=== PATIENT | female | born 1965 | race Caucasian/White ===

== ENCOUNTER 2023-11-11 19:13 | Emergency (ER) | payer BC, SELFPAY ==
--- NOTE | 2023-11-11 19:51 | ED.MUSCINJ ---
HPI-Injury
General
Chief Complaint: Musculo-Skeletal Complaint
Source: patient
Exam Limitations: none
Time Seen by Provider: 11/11/23 19:26
Travel History
Have you had any contact with someone who has COVID-19?: No
Do you have any symptoms of coronavirus? Fever > 100 degrees, chills, cough, shortness of breath, sore throat, loss of taste or smell, muscle aches, or headache?: No
History of Present Illness-Injury
Is this injury a work related problem?: No
Is pt an associate of [facility]?: No
Initial Injury comments:
This is a 58 year old female that comes in with c/o left knee pain. States that today she fell and landed on her knee. States that the floor was wet and she slipped. States that she did not hit her head or have any LOC. States that she was able to
walk on the leg but now she can't put any weight on the leg. Denies any fever, chills, nausea, vomiting, diarrhea, headache, dizziness.
Past History
Past History
ED Past Medical History: Hypercholesterolemia, Other (Chronic sinus issues, Migraines, ) and Other (Migraines)
ED Past Surgical History: Gynecological ( Total abd Hysterectomy ) and Orthopedic (Arthroscopic knee surgery, bunionectomy)
Social History
Tobacco: Non-smoker
Alcohol: Occasional
Personal:
Living: with family
Employment: Employed
Review of Systems
Review of Systems
All Other Systems: ROS reviewed and negative except as documented in HPI and ROS
Constitutional: Reports no symptoms; Denies fever or chills
EENT: Reports no symptoms
Respiratory: Reports no symptoms
Cardiac: Reports no symptoms
ABD/GI: Reports no symptoms
: Reports no symptoms
Musculoskeletal: Reports joint pain
Skin: Reports no symptoms
Neurological: Reports no symptoms; Denies dizzy or headache
Psychiatric: Reports no symptoms
Musculoskeletal Injury Exam
Musculoskeletal Injury Exam
Left Lateral Dorsal Knee:
Pain with Movement?: Mild
Tender to palpation?: Mild
Soft tissue swelling?: Mild
External deformity and angulation?: None
Joint effusion?: None
Contusion?: Mild
Strain- Sprain- Tear (Connective tissue injury)?: None
Crepitus with movement?: No
Joint instability?: No
Malalignment/deformity?: No
Range of motion: Limited (Du to pain)
Distal skin color and temperature: normal-warm & good color
Capillary Refill: normal
Normal distal neurovascular exam?: Yes
Phy Exam
General Physical Exam
General Presentation: well appearing and no apparent distress
General age: appears stated age
General Skin: warm and dry
General Habitus: normal
General Mental: alert
General Hydration: appears well hydrated
Eye Exam
Eye Exam: EOMI
Musculoskeletal Exam
Musculoskeletal Exam: other (Patient able to flex and extend but c/o pain. Tenderness distally and lateral over a contusion. Slight swelling noted. )
Skin Exam
Skin Exam: normal color, warm/dry, no rash, no petechia and other (Contusion noted on the left distal lateral knee)
Psychiatric Exam
Psychiatric Exam: normal mood/affect
Injury Course
Orders/Labs/Results
Orders:
Orders
11/11/23 19:17
CR Knee - Left 4 Or More View* Urgent
Comment:
Reason For Exam: injury
11/11/23 19:50
Crutches-Treatment ONCE
11/11/23 19:53
Knee Immobilizer Left-Treatmen ONCE
MDM/Problems Addressed
Differential Diagnosis Includes:
Knee Fracture, Contusion
MDM/Problems Addressed:
This is a 58 year old female that states she has left knee pain after slipping on a wet floor and going down on her left knee
Will get X-ray.
Chronic conditions affecting care:
NA
Acute Exacerbation and/or Progression of Chronic Illness:
NA
*Radiology
Radiology exam reviewed: radiology read reviewed (Left knee- Settle lucency in the lower pole of the patella. Likely a fracture. )
*Pulse Oximetry
Patient hypoxic: no
*EKG
Interpreted by ED Provider?: NA
Rate: EKG- N/A
*Hydrology Professor Interpretation
Rate: Hydrology Professor- N/A
*Critical Care Note
Total Time (30-74mins, 75-104mins- exclusive of procedures): Not Applicable
ED Attending Note
-
Portions of this chart may have been created with voice recognition software.� Occasional wrong word or��sound alike� substitutions may have occurred due to the inherent limitations of voice recognition software.
Discharge Plan
Departure
Patient Disposition: Home (Routine Discharge)
Date of Disposition: 11/11/23
Time of Disposition: 20:02
Patient with high blood pressure during this ER visit?: No
Condition: Good
Discharge Problem:
Left patella fracture
Instructions: How to Use Crutches, Knee Immobilizer (DC), Patella Fracture (DC), RICE Therapy
Prescriptions:
No Action
multivitamin [Daily Vitamin] 1 EACH tablet
1 ea PO HS
alprazolam 0.5 MG tablet
0.5 mg PO Q6HPRN PRN (Reason: anxiety)
Estragen Patch
1 patch topical .ON TU AND MON
Levoxyl
37.5 mcg PO DAILY
Rhinocort Nasal [place]
1 dose intranasal DAILY
Vitamin D-3
1 tab PO HS
famotidine 20 MG tablet
20 mg PO BID Qty: 28 0RF
Rx Instructions:
Take 20 mg twice a day for 14 days
ascorbic acid (vitamin C) [Vitamin C] 500 MG tablet
1,000 mg PO BID Qty: 56 0RF
Rx Instructions:
Take 1,000 mg twice a day for 14 days
aspirin 81 MG tablet,chewable
81 mg PO DAILY Qty: 14 0RF
Rx Instructions:
Take 81 mg daily for 14 days
zinc sulfate 220 MG capsule
220 mg PO DAILY Qty: 14 0RF
Rx Instructions:
Take 220 mg daily for 14 days
cholecalciferol (vitamin D3) 1,000 UNITS tablet
2,000 units PO DAILY Qty: 28 0RF
Rx Instructions:
Take 2,000 units daily for 14 days
melatonin 5 MG tablet
5 mg PO HS Qty: 14 0RF
Rx Instructions:
Take 5 mg daily at bedtime for 14 days
Referrals:
Koby Quintanilla MD [Active] - Follow up in 2-3 days
Scar Duffy DO [Family Provider] -
Activity Restrictions/Additional Instructions:
As discussed, there is a questionable fracture of the distal patella. You have been place in a Knee immobilizer. Please wear this when you are up moving around and use the Crutches. You may remove the immobilizer when you sleep and elevate your leg
on a pillow. Rest, ice and elevate. Follow up with the vendor management specialist in the next 2-3 days. You may use Tylenol 1000mg every 6 hours for pain and alternate with Ibuprofen 600mg every 6 hours with food. IF YOU HAVE ANY OTHER CONCERNS PLEASE
RETURN TO THE EMERGENCY ROOM
Interventions
Interventions:
*Risk Screen - Suicide Last Done: 11/11/23 19:15
*General Assessment Last Done: 11/11/23 19:15
*Neglect/Abuse Screening Last Done: 11/11/23 19:15
ED- Fall Risk Assessment Last Done: 11/11/23 19:46
*ED COVID-19 Vaccine History Last Done: 11/11/23 19:46
ED-Musculoskeletal Assessment Last Done: 11/11/23 19:46
[2023-11-11 20:35] VITALS: BP 104/65
== END 2023-11-11 20:35 | disposition home or self-care (01) ==
LOC: EMR 19:13
PROVIDERS: EMERGENCY PHYSICIAN Student in an Organized Health Care Education/Training Program; FAMILY PHYSICIAN Family Medicine; REFERRING PHYSICIAN Specialist
DX: S82.002A Unspecified fracture of left patella, initial encounter for closed fracture (principal); W01.0XXA Fall on same level from slipping, tripping and stumbling without subsequent striking against object, initial encounter; E78.00 Pure hypercholesterolemia, unspecified; Z90.710 Acquired absence of both cervix and uterus
CPT/HCPCS: 99283; 29505; 73564

== ENCOUNTER → 2024-02-05 11:44 | Outpatient (REF) | payer SELFPAY | LOC: RAD 11:44 | PROVIDERS: FAMILY PHYSICIAN Family Medicine | DX: E78.5 Hyperlipidemia, unspecified (principal); E78.01 Familial hypercholesterolemia; M33.13 Other dermatomyositis without myopathy | CPT/HCPCS: 75571 ==

== ENCOUNTER → 2024-06-25 15:56 | Outpatient (REF) | payer BC, SELFPAY | LOC: RCS 15:56 | PROVIDERS: FAMILY PHYSICIAN Family Medicine | DX: I31.39 Other pericardial effusion (noninflammatory) (principal) | CPT/HCPCS: 93306 ==

== ENCOUNTER → 2024-08-22 10:13 | Outpatient (REF) | payer BC, SELFPAY | LOC: RAD 10:13 | PROVIDERS: ATTENDING PHYSICIAN Family Medicine | DX: M85.80 Other specified disorders of bone density and structure, unspecified site (principal) | CPT/HCPCS: 77080 ==